=== PATIENT | female | born 1935 | race Caucasian/White ===

== ENCOUNTER 2020-02-20 12:55 | Outpatient (CLI) | payer MEDICARE, BC, OTHER ==
[2020-02-22 23:12] LABS: SARS-CoV-2 MS2 Positive; SARS-CoV-2 N Gene Negative; SARS-CoV-2 S Gene Negative; SARS-CoV-2 by NAA Not Detected (Not Detected); SARS-CoV-2 orf1ab Negative
== END 2020-02-20 12:56 | disposition home or self-care (01) ==
LOC: LABBT 12:55
PROVIDERS: ATTEND Internal Medicine
DX: R13.10 Dysphagia, unspecified (principal); Z20.828 Contact with and (suspected) exposure to other viral communicable diseases
CPT/HCPCS: 87635; U0003

== ENCOUNTER 2020-02-23 12:42 | Outpatient (CLI) | payer MEDICARE, BC ==
--- NOTE | 2020-02-25 16:25 | RAD ---
Modified barium swallow: 02/23/2020 COMPARISON: None HISTORY: Dysphagia following intracranial hemorrhage FINDINGS: Images from a modified barium swallow are provided for interpretation. The patient is image d in the lateral projection swallowing various consistencies of barium. No penetration or aspiration was seen during this examination. There is multilevel cervical spine degenerative change w ith disc space narrowing and multilevel facet and uncovertebral osteophyte formation. Please see speech pathologist report for full detail and feeding recommendations. IMPRESSION: No penetration or aspiration seen on this examination.
== END 2020-02-23 12:43 | disposition home or self-care (01) ==
PROVIDERS: ATTEND Internal Medicine
DX: I69.291 Dysphagia following other nontraumatic intracranial hemorrhage (principal)
CPT/HCPCS: 74230